=== PATIENT | male | born 1955 | race Caucasian/White ===

== ENCOUNTER 2017-10-26 08:57 | Emergency (ER) | payer OTHER, MEDICARE ==
[2017-10-26] MEDS ORDERED: NORMAL SALINE 1000 ML 1,000 ML IV ONE (09:36)
[2017-10-26 10:32] LABS: ABSOLUTE EOSINOPHILS # (AUTO) 0.1 10^3/uL (0.0-0.6); ABSOLUTE LYMPHOCYTES (AUTO) 1.1 10^3/uL (0.5-4.7); ABSOLUTE MONOCYTES (AUTO) 0.8 10^3/uL (0.1-1.4); ABSOLUTE NEUT (AUTO) 7.7 10^3/uL (1.7-8.2); BASOPHILS % (AUTO) 0.5 % (0-2); HEMATOCRIT 50.2 % (37.9-51.0); HEMOGLOBIN 16.8 g/dL (13.5-17.0); HGB HCT DIFFERENCE 0.2; LYMPHOCYTES % (AUTO) 11.1 % (13-45); MEAN CORPUSCULAR HEMOGLOBIN 28.8 pg (27.0-33.4); MEAN CORPUSCULAR HGB CONC 33.4 g/dL (32.0-36.0); MEAN CORPUSCULAR VOLUME 86 fl (80-97); RED BLOOD COUNT 5.81 10^6/uL (4.35-5.55); RED CELL DISTRIBUTION WIDTH 15.4 % (11.5-14.0); SEGMENTED NEUTROPHILS % (AUTO) 79.4 % (42-78); WHITE BLOOD COUNT 9.7 10^3/uL (4.0-10.5)
[2017-10-26 10:54] LABS: ALANINE AMINOTRANSFERASE 44 U/L (21-72); ALBUMIN 3.6 g/dL (3.5-5.0); ALKALINE PHOSPHATASE 102 U/L (38-126); ANION GAP 8 (5-19); ASPARTATE AMINO TRANSFERASE 29 U/L (17-59); BILIRUBIN,DIRECT 0.2 mg/dL (0.0-0.4); BILIRUBIN,TOTAL 0.9 mg/dL (0.2-1.3); BLOOD UREA NITROGEN 15 mg/dL (7-20); CALCIUM 8.8 mg/dL (8.4-10.2); CARBON DIOXIDE 25 mmol/L (22-30); CHLORIDE 109 mmol/L (98-107); CREATININE RESULT 1.12 mg/dL (0.52-1.25); GLUCOSE 123 mg/dL (75-110); POTASSIUM 4.3 mmol/L (3.6-5.0); SODIUM 141.8 mmol/L (137-145); TOTAL PROTEIN 6.6 g/dL (6.3-8.2)
[2017-10-26 11:45] LABS: APPEARANCE,URINE CLEAR; BILIRUBIN,URINE NEGATIVE (NEGATIVE); GLUCOSE, URINE 50 mg/dL (NEGATIVE); KETONES,URINE NEGATIVE (NEGATIVE); LEUKOCYTE ESTERASE,URINE NEGATIVE (NEGATIVE); NITRITE,URINE NEGATIVE (NEGATIVE); PROTEIN,URINE NEGATIVE (NEGATIVE); URINE SPECIFIC GRAVITY 1.023; UROBILINOGEN,URINE NEGATIVE mg/dL (<2.0)
--- NOTE | 2017-10-26 12:31 | ER Document Report ---
ED GI Bleed / Rectal Pain - General Mode of Arrival: Ambulatory Information source: Patient <DARRELLTOM - Last Filed: 10/26/17 13:09> <MARGARET GARCIA - Last Filed: 10/26/17 16:24> - General Chief Complaint: Rectal Bleeding Stated Complaint: RECTAL BLEEDING Time Seen by Provider: 10/26/17 10:50 Notes: Patient is a 62 year old male that presents to the emergency department today with complaints of rectal bleeding with associated lower abdominal pain. Patient states he has a known hemorrhoid and he thinks he may have "ripped it open". Patient states his stools recently have been "marble sized and hard as a rock". (TOM RAMÍREZ) - Related Data Allergies/Adverse Reactions: No Known Allergies Allergy (Verified 10/26/17 08:59) Past Medical History - General Information source: Patient - Social History Smoking Status: Never Smoker Cigarette use (# per day): No Chew tobacco use (# tins/day): No Frequency of alcohol use: None Drug Abuse: None Lives with: Family Family History: Reviewed & Not Pertinent Patient has suicidal ideation: No Patient has homicidal ideation: No - Past Medical History Cardiac Medical History: Reports: Hx Hypercholesterolemia, Hx Hypertension Renal/ Medical History: Reports: Hx Benign Prostatic Hyperplasia GI Medical History: Reports: Hx Gastroesophageal Reflux Disease Past Surgical History: Reports: Hx Appendectomy <TOM RAMÍREZ - Last Filed: 10/26/17 13:09> Review of Systems - Review of Systems Constitutional: No symptoms reported EENT: No symptoms reported Cardiovascular: No symptoms reported Respiratory: No symptoms reported Gastrointestinal: See HPI, Abdominal pain, Rectal bleeding Genitourinary: No symptoms reported Male Genitourinary: No symptoms reported Musculoskeletal: No symptoms reported Skin: No symptoms reported Hematologic/Lymphatic: No symptoms reported Neurological/Psychological: No symptoms reported -: Yes All other systems reviewed and negative <TOM RAMÍREZ - Last Filed: 10/26/17 13:09> Physical Exam <TOM RAMÍREZ - Last Filed: 10/26/17 13:09> - Abdominal Inspection: Normal Tenderness: Tender - Mild left lower quadrant. No: Guarding, Rebound <MARGARET GARCIA - Last Filed: 10/26/17 16:24> - Vital signs Vitals: Temp Pulse Resp BP Pulse Ox 97.8 F 53 L 14 128/84 H 99 10/26/17 09:03 10/26/17 09:03 10/26/17 09:03 10/26/17 09:03 10/26/17 09:03 - Notes Notes: Physical Exam: General: Alert, appears well. HEENT: Normocephalic. Atraumatic. PERRL. Extraocular movements intact. Oropharynx clear. Neck: Supple. Non-tender. Respiratory: No respiratory distress. Clear and equal breath sounds bilaterally. Cardiovascular: Regular rate and rhythm. Abdominal: Normal Inspection. Non-tender. No distension. Normal Bowel Sounds. Back: Non-tender. No deformity or step off. Extremities: Moves all four extremities. Upper extremities: Normal inspection. Normal ROM. Lower extremities: Normal inspection. No edema. Normal ROM. Neurological: Normal cognition. AAOx4. Normal speech. Psychological: Normal affect. Normal Mood. Skin: Warm. Dry. Normal color. (TOM RAMÍREZ) Course - Laboratory Result Diagrams: 10/26/17 10:15 10/26/17 10:15 <TOM RAMÍREZ - Last Filed: 10/26/17 13:09> - Laboratory Result Diagrams: 10/26/17 10:15 10/26/17 10:15 - Diagnostic Test Radiology reviewed: Reports reviewed <MARGARET GARCIA - Last Filed: 10/26/17 16:24> - Re-evaluation Re-evalutation: 10/26/[address] that is concerning for some inflammation of his lower colon. Patient has colonoscopies every 3 years as his sister from colon cancer at a young age. Patient has had no abnormalities on his colonoscopy ever this is the first time that he is having symptoms like this. Unlikely inflammatory bowel disease although this possibility was discussed with the patient. It is more likely that due to his mild left lower quadrant tenderness to palpation and looser stool, he has diverticulitis. Patient was educated about this and started on Cipro and Flagyl. He is to do a low fiber diet and return immediately if he has any concerning or worsening symptoms. Is agreeable to this plan. [facility] return to the emergency department if he has any worsening symptoms or concerns. Stable for discharge. (MARGARET GARCIA) - Vital Signs Vital signs: Temp Pulse Resp BP Pulse Ox 97.6 F 52 L 14 124/74 98 10/26/17 13:35 10/26/17 13:35 10/26/17 13:35 10/26/17 13:35 10/26/17 13:35 - Laboratory Laboratory results interpreted by me: 10/26/17 10/26/17 10/26/17 10:15 10:15 11:30 RBC 5.81 H RDW 15.4 H Seg Neutrophils % 79.4 H Lymphocytes % 11.1 L Chloride 109 H Glucose 123 H Urine Glucose (UA) 50 H Discharge <TOM RAMÍREZ - Last Filed: 10/26/17 13:09> <MARGARET GARCIA - Last Filed: 10/26/17 16:24> - Discharge Clinical Impression: Rectal bleeding, Diverticulitis Condition: Stable Disposition: HOME, SELF-CARE Instructions: Diverticulitis ([facility]), Low Residue Diet ([facility]), Rectal Bleeding, Unclear Cause ([facility]) Additional Instructions: Please follow-up with a tong hooker when you are able to do so.. Please make sure that you are eating a bland, low fiber diet. Return immediately if you have any worsening or concerning symptoms. Prescriptions: Ondansetron [Zofran Odt 4 mg Tablet] 1 tab PO Q6HP PRN #15 tab.rapdis PRN Reason: For Nausea/Vomiting Ciprofloxacin HCl [Cipro 500 mg Tablet] 500 mg PO BID #28 tablet Metronidazole [Flagyl 500 mg Tablet] 500 mg PO TID #42 tablet Referrals: TRISTEN ALBA MD [Primary Care Provider] - Follow up in 3-5 days Scribe Attestation: 10/26/17 16:23 I personally performed the services described in the documentation, reviewed and edited the documentation which was dictated to the scribe in my presence, and it accurately records my words and actions, with exception of correction of abdominal exam which has been updated by myself. (MARGARET GARCIA) Scribe Documentation - Scribe Written by Mindye:: Alexa Osborn, 10/26/2017 1312 acting as scribe for :: Chely <TOM RAMÍREZ - Last Filed: 10/26/17 13:09>
--- NOTE | 2017-10-26 13:00 | RADIOLOGY REPORT (SQ) ---
EXAM DESCRIPTION: CT ABD/PELVIS NO ORAL OR IV COMPLETED DATE/TIME: 10/26/2017 12:43 pm REASON FOR STUDY: LLQ pain, rectal bleeding COMPARISON: 09/05/2012 TECHNIQUE: CT scan of the abdomen and pelvis performed without intravenous or oral contrast. Images reviewed with lung, soft tissue, and bone windows. Reconstructed coronal and sagittal MPR images revi ewed. All images stored on PACS. All CT scanners at this facility use dose modulation, iterative reconstruction, and/or weight based d osing when appropriate to reduce radiation dose to as low as reasonably achievable (ALARA). [facility]: Dose Right [facility]: CareDose [facility]: Dose Right [facility]: Teradose 4D [facility]: Smart PolicyStat RADIATION DOSE: CT Rad equipment meets quality standard of care and radiation dose reduction techniq ues were employed. CTDIvol: 13.2 mGy. DLP: 827 mGy-cm.mGy. LIMITATIONS: None. FINDINGS: LOWER CHEST: No significant findings. No nodules or infiltrates. NON-CONTRASTED LIVER, SPLEEN, ADRENALS: Evaluation limited by lack of IV contrast. No identified sign ificant masses. PANCREAS: No masses. No peripancreatic inflammatory changes. GALLBLADDER: No identified stones by CT criteria. No inflammatory changes to suggest cholecystitis. RIGHT KIDNEY AND URETER: No suspicious masses. Assessment limited by lack of IV contrast. No signif icant calcifications. No hydronephrosis or hydroureter. LEFT KIDNEY AND URETER: No suspicious masses. Assessment limited by lack of IV contrast. No signifi cant calcifications. No hydronephrosis or hydroureter. AORTA AND RETROPERITONEUM: No aneurysm. No retroperitoneal masses or adenopathy. BOWEL AND PERITONEAL CAVITY: There is thickening of the wall of the long segment of the descending an d sigmoid colon with stranding in the fat around it. A few diverticula are seen in the distal sigmoi d colon. APPENDIX: Not identified. PELVIS, BLADDER, AND ABDOMINAL WALL:Urinary bladder is normal. Prostate gland is enlarged with a tra nsverse diameter 64 mm. BONES: No significant findings. OTHER: No other significant finding. IMPRESSION: 1. Thickening of a segment of descending and sigmoid colon with pericolic inflammatory changes suggestive of inflammatory bowel disease. 2. Mild diverticulosis coli. 3. Enlarged prostate gland. COMMENT: Quality ID # [id number]: Final reports with documentation of one or more dose reduction techniques (e.g., Automated exposure control, adjustment of the mA and/or kV according to patient size, use of iterative reconstruction technique) TECHNICAL DOCUMENTATION: JOB ID: [id number] [employer]- All Rights Reserved
[2017-10-26 13:37] VITALS: BP 124/74
[2017-10-26] MEDS ORDERED: CIPROFLOXACIN HCL 500 MG TABLET PO ONE (13:39)
[2017-10-26] MEDS ORDERED: METRONIDAZOLE 500 MG TABLET PO ONE (13:39)
[2017-10-26] MEDS ORDERED: ONDANSETRON HCL INJ/PF 4 MG/2 ML SDV IV ONE (13:54)
== END 2017-10-26 14:26 | disposition home or self-care (01) ==
LOC: ER 08:57
DX: K57.92 Diverticulitis of intestine, part unspecified, without perforation or abscess without bleeding (principal); K62.5 Hemorrhage of anus and rectum; R10.30 Lower abdominal pain, unspecified
CPT/HCPCS: 99284; 96361; 96374; 36415; 85025; 80053; 81001; 74176; J2405; J7030